=== PATIENT | female | born 1965 | race Caucasian/White ===

== ENCOUNTER 2017-01-29 07:31 | Day surgery (SDC) | payer BC ==
[~2017-01-29 07:31] MED LIST: Lactated Ringers 1,000 ML IV SCH; Lidocaine 1%/Sod Bicarbonate in NS 8.4% 1 ML Syringe PRN; Sodium Chloride 0.9% 10 ML Syringe FLUSH PRN
--- NOTE | 2017-01-29 07:54 | PCM.PREANE ---
Preanesthetic Assessment - Anesthesia/Transfusion/Family Hx Anesthesia History: Prior Anesthesia Without Reaction Type of Anesthesia Reaction: Unknown Family History of Anesthesia Reaction: No Transfusion History: No Prior Transfusion(s) Type of Transfusion Reactions: Reports: Other (see below) - Review of Systems General: No Symptoms Pulmonary: Other (smoker, 1 pack per day) Cardiovascular: No Symptoms Gastrointestinal: No symptoms Neurological: No Symptoms Other: Reports: Depression, Anxiety - Physical Assessment NPO Status Date: 01/28/17 NPO Status Time: 22:00 Pulse: 82 O2 Sat by Pulse Oximetry: 100 Respiratory Rate: 16 Blood Pressure: 125/83 Temperature: 36.6 C Weight: 72 kg ASA Class: 2 Mental Status: Alert & Oriented x3 Airway Class: Mallampati = 2 Dentition: Reports: Normal Dentition Thyro-Mental Finger Breadths: 3 Mouth Opening Finger Breadths: 3 ROM/Head Extension: Full Lungs: Clear to auscultation, Normal respiratory effort Cardiovascular: Regular Rate, Regular Rhythm - Allergies Allergies/Adverse Reactions: Allergies Allergy/AdvReac Type Severity Reaction Status Date / Time No Known Allergies Allergy Verified 01/28/17 17:15 - Blood Blood Available: No Product(s) Available: None - Anesthesia Plan Pre-Op Medication Ordered: None - Acknowledgements Anesthesia Type Planned: MAC Pt an Appropriate Candidate for the Planned Anesthesia: Yes Alternatives and Risks of Anesthesia Discussed w Pt/Guardian: Yes Pt/Guardian Understands and Agrees with Anesthesia Plan: Yes PreAnesthesia Questionnaire HEENT History: Reports: Impaired vision, Sinusitis Cardiovascular History: Reports: None Respiratory History: Reports: None Gastrointestinal History: Reports: None Genitourinary History: Reports: None MANAGER TRANSPORTATION History: Reports: None Musculoskeletal History: Reports: None Neurological History: Reports: None Psychiatric History: Reports: Anxiety, Depression Endocrine/Metabolic History: Reports: None Hematologic History: Reports: None Immunologic History: Reports: None Oncologic (Cancer) History: Reports: None Other Dermatologic History: skin neoplasm - Past Surgical History Head Surgeries/Procedures: Reports: None - SUBSTANCE USE Smoking Status *Q: Current Every Day Smoker Recreational Drug Use History: No - HOME MEDS Home Medications: Home Meds Gabapentin [Gabapentin] 600 mg PO DAILY 01/28/17 [History] PARoxetine HCl [Paroxetine ER] 75 mg PO DAILY 01/28/17 [History] - CURRENT (IN HOUSE) MEDS Current Meds: Current Medications Lactated Ringer's (Ringers, Lactated) 1,000 mls @ 125 mls/hr IV ASDIRECTED HAILEE Stop: 01/29/17 23:00 Lidocaine/Sodium Bicarbonate (Buffered Lidocaine 1% In Ns 8.4%) 0.25 ml .XX ONETIME PRN PRN Reason: Prior to IV Start Stop: 01/29/17 18:00 Sodium Chloride (Saline Flush) 10 ml FLUSH ASDIRECTED PRN PRN Reason: Keep Vein Open Stop: 01/29/17 18:00
[2017-01-29] MEDS ORDERED: Ondansetron 4 MG/2 ML SDV IVPUSH PRN (07:55)
[2017-01-29] MEDS ORDERED: Propofol 200 MG/20 ML SDV ONE (08:42)
[2017-01-29] MEDS ORDERED: Midazolam 1 MG/ML 2 ML SDV ONE (08:42)
--- NOTE | 2017-01-29 08:48 | PCM48HPAN ---
Post Anesthesia Note - EVALUATION WITHIN 48HRS OF ANESTHETIC Vital Signs in Normal Range: Yes Patient Participated in Evaluation: Yes Respiratory Function Stable: Yes Airway Patent: Yes Cardiovascular Function Stable: Yes Hydration Status Stable: Yes Pain Control Satisfactory: Yes Nausea and Vomiting Control Satisfactory: Yes Mental Status Recovered: Yes
--- NOTE | 2017-01-29 08:55 | PCM.OPNOTE ---
[id number] Findings: small early sigmoid diverticulosis Pre Op Diagnosis: screening Post-Op Diagnosis: sigmoid diverticulosis Anesthesia Technique: MAC, Moderate sedation Primary Surgeon: Papi Raya Pathology: none EBL in mLs: 0 Complications: none Condition: Good Free Text/Narrative:: After adequate IV sedation and analgesia was obtained the patient was placed on her left side. Perianal inspection digital rectal examination were performed and were normal. A lubricated colonoscope was inserted into the rectum then passed to the cecum without difficulty. The bowel preparation was excellent. The cecum, right colon, transverse, and descending colons were endoscopically normal with no mass lesions or inflammatory changes seen. The sigmoid had a 2-3 small diverticula that were uncomplicated. The rectum in both views was normal. Air was removed, as I finished the procedure, which she tolerated well. Cat Breeder photographs were taken for the patient and for the record.
[2017-01-29 08:57] VITALS: BP 116/76
== END 2017-01-29 09:20 | disposition home or self-care (01) ==
LOC: JD.SDS 07:31
PROVIDERS: ATTEND Surgery
DX: Z12.11 Encounter for screening for malignant neoplasm of colon (principal); K57.30 Diverticulosis of large intestine without perforation or abscess without bleeding; F41.9 Anxiety disorder, unspecified; F32.9 Major depressive disorder, single episode, unspecified; D48.5 Neoplasm of uncertain behavior of skin; Z79.899 Other long term (current) drug therapy; Z80.3 Family history of malignant neoplasm of breast; F17.200 Nicotine dependence, unspecified, uncomplicated
CPT/HCPCS: 45378; J2250; J7120; 00810; J2704

== ENCOUNTER 2025-06-09 07:03 | Day surgery (SDC) | payer BC ==
[~2025-06-09 07:03] MED LIST changes: -Lactated Ringers 1,000 ML IV SCH; -Lidocaine 1%/Sod Bicarbonate in NS 8.4% 1 ML Syringe PRN; +Sodium Chloride 0.9% 10 ML Syringe FLUSH SCH
[2025-06-09] MEDS ORDERED: Midazolam 1 MG/ML 2 ML SDV ONE (07:30)
[2025-06-09] MEDS ORDERED: Propofol 200 MG/20 ML SDV ONE (07:30)
[2025-06-09] MEDS ORDERED: fentaNYL 100 MCG/2 ML SDV ONE (07:31)
[2025-06-09] MEDS: Lactated Ringers 1,000 ML IV SCH (07:55)
[2025-06-09] MEDS ORDERED: Lactated Ringers 1,000 ML ONE (07:59)
[2025-06-09] MEDS: EPINEPHrine 1 MG/ML SDV ONE (09:05)
[2025-06-09 10:00] VITALS: BP 134/70; PULSE 78
== END 2025-06-09 10:00 | disposition home or self-care (01) ==
LOC: JD.SDS 07:03
PROVIDERS: ATTEND Surgery
DX: D17.22 Benign lipomatous neoplasm of skin and subcutaneous tissue of left arm (principal); M67.432 Ganglion, left wrist; E78.00 Pure hypercholesterolemia, unspecified; Z79.899 Other long term (current) drug therapy
CPT/HCPCS: 01810; J0169; J0665; J2003; J2250; J2704; J3010; J7120